=== PATIENT | male | born 1965 ===

== ENCOUNTER 2019-08-20 12:51 | Emergency (ER) | payer OTHER ==
[2019-08-20 13:27] LABS: #Basophils 0.1 thou/uL (0.0-0.2); #Lymphocytes 1.5 thou/uL (1.20-3.40); #Monocytes 0.4 thou/uL (0.11-0.59); #Neutrophils 2.4 thou/uL (1.40-6.50); %Basophils 2.3 % (0.0-1.0); %Eosinophils 0.9 % (0.0-10.0); %Lymphocytes 33.7 % (21.0-51.0); %Monocytes 9.3 % (0.0-10.0); %Neutrophils 53.8 % (42.0-75.0); Hemoglobin 13.7 g/dL (14.0-18.0); Mean Corpuscular HGB CONC 32.3 g/dL (32.0-36.0); Mean Corpuscular Hemoglobin 29.8 pg (27.0-31.0); Mean Corpuscular Volume 92.5 fL (78.0-98.0); Mean Platelet Volume 9.8 fL (7.4-10.4); Platelet Count 143 thou/uL (130-400); RBC Distribution Width 11.5 % (11.5-14.5); White Blood Cell (WBC) Count 4.4 thou/uL (4.8-10.8)
--- NOTE | 2019-08-20 13:45 | CT ---
Exam: CT cervical spine without contrast HISTORY: Trauma. Pain. COMPARISON: None FINDINGS: No craniocervical dissociation. Appropriate alignment of the lateral masses of C1 and C2. Intact odon toid process Appropriate alignment of the facets. Straightening of normal cervical lordosis may be due to patient position, muscle spasm or cervical collar. Current study is not tailored to assess for ligamentous injury. Soft tissue neck structures: No mass, lymphadenopathy or hematoma. No prevertebral soft tissue swelli ng. Upper mediastinum and lung apices: Unremarkable Central spinal canal: Varying degrees of central canal stenosis and neural foramina and the basis of degenerative change. There is severe loss of disc space height, endplate sclerosis and osteophyte formation at C4-C5, C5-C6 and C6-C7 Vertebral bodies: Cervical spine vertebral body height is maintained. No fracture. IMPRESSION: 1. No fracture 2. Straightening of normal cervical lordosis as above. If there is concern for ligamentous injury, c onsider MRI 3. Degenerative changes of cervical spine as detailed above.
[2019-08-20 14:01] LABS: ALT (SGPT) 13 U/L (8-55); AST (SGOT) 18 U/L (5-34); Albumin 4.8 g/dL (3.5-5.0); Alkaline Phosphatase 56 U/L (40-110); Anion Gap 15 mmol/L (10-20); BUN (Urea Nitrogen) 9 mg/dL (8.4-25.7); Bilirubin, Total 0.4 mg/dL (0.2-1.2); Calc. Creatinine Clearance 0 mL/min (70-130); Carbon Dioxide 26 mmol/L (22-29); Chloride 96 mmol/L (98-107); Estimated GFR-MDRD 88; Globulin 3.9 g/dL (2.4-3.5); Glucose 105 mg/dL (70-105); Potassium 4.7 mmol/L (3.5-5.1); Protein, Total 8.7 g/dL (6.0-8.3); Sodium 132 mmol/L (136-145)
[2019-08-20] MEDS ORDERED: Dexamethasone 10 MG/ML VIAL ONE (15:00)
== END 2019-08-20 15:15 | disposition home or self-care (01) ==
LOC: ERS 12:51 → EEVIPCON 12:51 → ERS 15:15
DX: M50.123 Cervical disc disorder at C6-C7 level with radiculopathy (principal); G25.2 Other specified forms of tremor; I10 Essential (primary) hypertension; E78.00 Pure hypercholesterolemia, unspecified; F39 Unspecified mood [affective] disorder; F32.9 Major depressive disorder, single episode, unspecified; Z79.82 Long term (current) use of aspirin; Z79.899 Other long term (current) drug therapy
CPT/HCPCS: 72125; 80053; 80164; 84484; 85025; 93005; 96374; J1100